=== PATIENT | female | born 1975 | race Caucasian/White ===

== ENCOUNTER 2017-03-17 08:13 | Outpatient (CLI) | payer OTHER ==
--- NOTE | 2017-03-17 11:58 | MRI ---
BRAIN MRI WITH AND WITHOUT CONTRAST: Date: 03-17-17 Comparison: None. History: Syncope, collapse, vasovagal syncope. Technique: Multiplanar, multisequence MR imaging of the brain is obtained with and without contrast. FINDINGS: The diffusion weighted imaging demonstrates no evidence for acute infarction. Axial gradient echo imaging demonstrates no evidence for intracranial hemorrhage. Arterial flow voids at axial level skull base appear unremarkable on T2 weighted imaging. The paranasal sinuses/mastoid air cells demonstrate normal signal intensity. There is no midline shift, mass effect, or ventricular enlargement. Post contrast imaging is unremar kable. IMPRESSION: Grossly unremarkable contrast enhanced brain MRI. POS: [facility]
[2017-03-17] MEDS ORDERED: Iopamidol 370 76% 100 ML VIAL ONE (14:18)
[2017-03-17] MEDS ORDERED: Gadobenate Dimeglumine 529 MG/1 ML (20ML VIAL) ONE (14:22)
--- NOTE | 2017-03-17 14:25 | CT ---
HEAD CT WITHOUT CONTRAST CT ANGIOGRAM HEAD CT ANGIOGRAM NECK: Date: 03/17/17 COMPARISON: None. HISTORY: Syncopal episodes, headaches and dizziness. TECHNIQUE: Serial axial CT imaging at 5 mm intervals obtained from vertex through skull base without contrast. Then, serial axial CT imaging at 1.25 mm intervals obtained from the lung apices through the vertex with IV contrast using CT angiogram protocol. Coronal and sagittal 3D reformatted imaging of the hea d and neck obtained post contrast. FINDINGS: HEAD CT WITHOUT CONTRAST: No intracranial hemorrhage, midline shift, mass effect, or ventricular enlargement. The imaged paran shelley sinuses and mastoid air cells are well aerated. There is no displaced calvarial fracture. CT ANGIOGRAM HEAD: Distal vertebral arteries are patent bilaterally. The basilar artery and its branches are patent. Bilateral posterior cerebral arteries are unremarkable. There is no saccular aneurysm, high grade st enosis, or vascular occlusion involving the posterior circulation. The distal extracranial cervical ICA is unremarkable bilaterally. The ICA bifurcation, MCA bifurcation, A1 segment, and M1 segment appear unremarkable bilaterally. Di stal GRACIELA and MCA branches are within normal limits. CT ANGIOGRAM NECK: The retroantral and parapharyngeal fat is clear bilaterally. The parotid and submandibular glands appear unremarkable. The imaged lung apices appear unremarkable. Limited assessment of the aerodigestive tract appears unremarkable. No lymphadenopathy is noted within the neck. The origin of the innominate artery, left common carotid artery, and left subclavian artery appear u nremarkable. Bilateral vertebral artery origins are unremarkable. Origin of right common carotid and right subclavian artery appear unremarkable as well. There is no hemodynamically significant stenosis involving the common carotid artery or internal car otid artery on either side. No acute osseous abnormality. IMPRESSION: Grossly unremarkable noncontrast enhanced head CT, CT angiogram neck, and CT angiogram head. POS: [facility]
== END 2017-03-17 08:14 | disposition home or self-care (01) ==
LOC: EEG 08:13
PROVIDERS: ATTEND Student in an Organized Health Care Education/Training Program
DX: G45.9 Transient cerebral ischemic attack, unspecified (principal); R55 Syncope and collapse
CPT/HCPCS: 70496; 70498; 70553; 95816; A9579